=== PATIENT | female | born 1960 | race American Indian/Alaskan Native ===

== ENCOUNTER 2016-07-22 19:04 | Emergency (ER) | payer MEDICARE | END 2016-07-22 21:01 | disposition left against medical advice (07) | LOC: ED 19:04 | DX: M25.579 Pain in unspecified ankle and joints of unspecified foot (principal); Z53.21 Procedure and treatment not carried out due to patient leaving prior to being seen by health care provider; W18.30XA Fall on same level, unspecified, initial encounter; Y93.9 Activity, unspecified; Y92.9 Unspecified place or not applicable; Y99.9 Unspecified external cause status ==

== ENCOUNTER 2017-09-14 18:52 | Emergency (ER) | payer MEDICARE ==
[2017-09-14 19:56] LABS: Hematocrit 42.9 % (30.3-42.9); Hemoglobin 13.8 gm/dl (10.1-14.3); Mean Corpuscular HGB Conc 32 % (30-34); Mean Corpuscular Hemoglobin 28 pg (28-32); Mean Corpuscular Volume 86 fl (79-97); Platelet Count 330 K/mm3 (140-440); Red Cell Distribution Width 14.2 % (13.2-15.2)
[2017-09-14] MEDS ORDERED: PROVENTIL IH ONE (20:04)
[2017-09-14] MEDS ORDERED: TYLENOL PO ONE (20:04)
[2017-09-14 20:09] LABS: BUN/Creatinine Ratio 23; Blood Urea Nitrogen 18 mg/dL (7-17); Calcium 9.6 mg/dL (8.4-10.2); Hemolysis Index 12
[2017-09-14 20:25] LABS: Basophils % (Manual) 0 % (0.0-1.8); Eosinophils % (Manual) 0 % (0.0-4.3); Total Cells Counted 100
[2017-09-14 20:26] LABS: Anisocytosis 1+
--- NOTE | 2017-09-14 20:27 | Emergency Department Report ---
ED General Adult HPI - General Chief complaint: Dyspnea/Respdistress Stated complaint: COUGH, EH Time Seen by Provider: 09/14/17 19:49 Source: patient, RN notes reviewed Mode of arrival: Ambulatory Limitations: No Limitations - History of Present Illness Initial comments: Primary care Dr.: Dr. Pricila Valdez This is a 57-year-old female who was previously unknown to this provider. She presents to the ER with cough, abdominal discomfort with coughing, mucus production, and blood tinged sputum. She reports a few episodes of coughing over the past week, saw her primary care doctor for this, going 10 prescribed albuterol, steroids, Levaquin and a cough syrup. The patient has no DVT or pulmonary embolus risk factors, she is a former tobacco consumer, denies leg pain, leg swelling, hematemesis, bright red blood per rectum. Her symptoms are intermittent, and did not have exacerbating or relieving factors. -: Gradual Quality: aching Consistency: intermittent Improves with: none Worsens with: none Associated Symptoms: cough, fever/chills, other (see hpi). denies: confusion, chest pain, diaphoresis, headaches, loss of appetite, malaise, nausea/vomiting, rash, seizure, syncope - Related Data Home Medications Medication Instructions Recorded Confirmed Last Taken Atenolol 100 mg PO DAILY 06/17/13 11/22/15 11/18/13 08:00 ALBUTEROL NEB's [Proventil] 2.5 mg IH TID PRN 11/22/15 11/22/15 Unknown Fluticasone/Salmeterol [Advair 1 tab INHALATION DAILY 11/22/15 11/22/15 Unknown Diskus 500-50 mcg] Hydrochlorothiazide [HCTZ] 25 mg PO QDAY 11/22/15 11/22/15 Unknown Ipratropium [Atrovent] 0.5 mg IH Q4HWA 11/22/15 11/22/15 Unknown LORazepam [Ativan] 1 mg PO QHS 11/22/15 11/22/15 Unknown Nebulizer/Compressor 1 inh PO DAILY PRN 11/22/15 11/22/15 Unknown Omeprazole [PriLOSEC] 20 mg PO BID 11/22/15 11/22/15 Unknown Previous Rx's Medication Instructions Recorded Last Taken Type Albuterol Sulfate [Ventolin HFA] 2 puff IH Q4H PRN #1 hfa.aer.ad 12/17/13 Unknown Rx Lansoprazole [Prevacid] 15 mg PO BID #30 cap 11/22/15 Unknown Rx traMADol [Ultram] 50 mg PO Q6HR PRN #14 tablet 11/22/15 Unknown Rx Allergies Allergy/AdvReac Type Severity Reaction Status Date / Time aspirin AdvReac Vomiting Verified 06/17/13 09:11 ibuprofen AdvReac Vomiting Verified 06/17/13 09:11 ED Review of Systems ROS: Stated complaint: COUGH, EH Other details as noted in HPI Comment: All other systems reviewed and negative ED Past Medical Hx - Past Medical History Previous Medical History?: Yes Hx Hypertension: Yes (1989) Hx Arthritis: Yes (LEGS AND BACK) Hx Asthma: Yes (INHALER USED 6 MONTHS AGO) - Surgical History Past Surgical History?: Yes Additional Surgical History: Hysterectomy. hand surgery L) - Social History Smoking Status: Current Every Day Smoker Substance Use Type: None - Medications Home Medications: Home Medications Medication Instructions Recorded Confirmed Last Taken Type Atenolol 100 mg PO DAILY 06/17/13 11/22/15 11/18/13 08:00 History Albuterol Sulfate [Ventolin HFA] 2 puff IH Q4H PRN #1 hfa.aer.ad 12/17/13 Unknown Rx ALBUTEROL NEB's [Proventil] 2.5 mg IH TID PRN 11/22/15 11/22/15 Unknown History Fluticasone/Salmeterol [Advair 1 tab INHALATION DAILY 11/22/15 11/22/15 Unknown History Diskus 500-50 mcg] Hydrochlorothiazide [HCTZ] 25 mg PO QDAY 11/22/15 11/22/15 Unknown History Ipratropium [Atrovent] 0.5 mg IH Q4HWA 11/22/15 11/22/15 Unknown History LORazepam [Ativan] 1 mg PO QHS 11/22/15 11/22/15 Unknown History Lansoprazole [Prevacid] 15 mg PO BID #30 cap 11/22/15 Unknown Rx Nebulizer/Compressor 1 inh PO DAILY PRN 11/22/15 11/22/15 Unknown History Omeprazole [PriLOSEC] 20 mg PO BID 11/22/15 11/22/15 Unknown History traMADol [Ultram] 50 mg PO Q6HR PRN #14 tablet 11/22/15 Unknown Rx ED Physical Exam - General Limitations: No Limitations General appearance: alert, in no apparent distress - Head Head exam: Present: atraumatic, normocephalic - Eye Eye exam: Present: normal appearance, EOMI. Absent: nystagmus - ENT ENT exam: Present: normal exam, normal orophraynx, mucous membranes moist, normal external ear exam - Neck Neck exam: Present: normal inspection, full ROM - Respiratory Respiratory exam: Present: normal lung sounds bilaterally. Absent: respiratory distress - Cardiovascular Cardiovascular Exam: Present: regular rate, normal rhythm, normal heart sounds. Absent: systolic murmur, diastolic murmur, rubs, gallop - GI/Abdominal GI/Abdominal exam: Present: soft, normal bowel sounds. Absent: distended, tenderness, guarding, rebound, rigid, pulsatile mass - Extremities Exam Extremities exam: Present: normal inspection, full ROM, normal capillary refill. Absent: pedal edema, joint swelling, calf tenderness - Back Exam Back exam: Present: normal inspection, full ROM. Absent: tenderness, CVA tenderness (R), paraspinal tenderness - Neurological Exam Neurological exam: Present: alert, oriented X3, CN II-XII intact, normal gait, other (Extraocular movements intact. Tongue midline. No facial droop. Facial sensation intact to light touch in the V1, V2, V3 distribution bilaterally. 5 and 5 strength in 4 extremities.. Sensation is intact to light touch in 4 extremities.). Absent: motor sensory deficit - Psychiatric Psychiatric exam: Present: anxious - Skin Skin exam: Present: warm, dry, intact, normal color. Absent: rash ED Course Vital Signs 09/14/17 19:28 Temperature 98.6 F Pulse Rate 78 Respiratory 20 Rate Blood Pressure 131/53 O2 Sat by Pulse 97 Oximetry ED Medical Decision Making - Lab Data Result diagrams: 09/14/17 19:42 09/14/17 19:42 Vital Signs 09/14/17 19:28 Temperature 98.6 F Pulse Rate 78 Respiratory 20 Rate Blood Pressure 131/53 O2 Sat by Pulse 97 Oximetry Labs 09/14/17 09/14/17 19:42 19:42 WBC 12.3 H RBC 5.00 Hgb 13.8 Hct 42.9 MCV 86 MCH 28 MCHC 32 RDW 14.2 Plt Count 330 Sodium 138 Potassium 4.1 Chloride 95.9 L Carbon Dioxide 31 H Anion Gap 15 BUN 18 H Creatinine 0.8 Estimated GFR > 60 BUN/Creatinine Ratio 23 Glucose 125 H Calcium 9.6 - EKG Data -: EKG Interpreted by Me - EKG Data When compared to previous EKG there are: previous EKG unavailable 09/14/17 20:25 Normal sinus, 78 bpm, normal intervals, normal axis, left ventricular hypertrophy and not consistent with a stemi - Radiology Data Radiology results: image reviewed interpreted by me: X-ray the chest, interpreted by me: No acute disease - Medical Decision Making Differential diagnosis, including but not limited to: Bronchitis, bronchiectasis , pneumonia, sinusitis, pulmonary malignancy Assessment and plan: 57-year-old female with cough, intermittent hemoptysis, former tobacco user, unremarkable physical exam, laboratory studies are unremarkable, x-ray of the chest unremarkable, oriented taking albuterol, steroids, antibiotic therapy and cough suppressant. Patient reports she has follow-up next month with a shoe repairer apprentice. This is most likely an iteration of bronchitis. She is afebrile with reassuring vital signs, has no pulmonary embolus or DVT risk factors and is low risk by well's criteria. The patient may be managed expectantly at this time given the occurrence of information, she is encouraged to follow-up with her outpatient shoe repairer apprentice. Return precautions are reviewed. Critical care attestation.: If time is entered above; I have spent that time in minutes in the direct care of this critically ill patient, excluding procedure time. ED Disposition Clinical Impression: Bronchitis Disposition: [id number] TO HOME OR SELFCARE Is pt being admited?: No Does the pt Need Aspirin: No Condition: Good Instructions: Acute Bronchitis (ED) Additional Instructions: Continue medications that were prescribed by her primary care doctor. Follow- up with your primary care doctor within the next month. Follow up with the referred shoe repairer apprentice or any of the listed pulmonology specialists within the next month. Symptoms of bronchitis typically lasts 4-6 weeks. Return to the ER right away with new pain, worsened pain, migration of pain, fevers, chills, confusion, intractable nausea or vomiting, inability to tolerate liquid feeds, vomiting blood, defecating blood. Referrals: SARAH VALDEZ MD [Primary Care Provider] - 3-5 Days BRITTANI CAPPS MD [Staff Physician] - 3-5 Days PAUL LUEVANO MD [Staff Physician] - 3-5 Days JOSEFINA LAW MD [Staff Physician] - 3-5 Days BETITO COTA MD [Staff Physician] - 3-5 Days
[2017-09-14 20:40] VITALS: BP 130/75
--- NOTE | 2017-09-14 21:16 | XRay Report ---
FINAL REPORT EXAM: XR CHEST ROUTINE 2V HISTORY: Shortness of breath TECHNIQUE: PA and lateral views of the chest PRIORS: None. FINDINGS: Lines, tubes, and devices: N/A Lungs and pleura: Trachea is normal in position. Lungs are clear of infiltrate, pleural effusion, vascular congestion, or pneumothorax. Cardiomediastinal silhouette: Cardiac and mediastinal silhouettes are unremarkable. Other: Bony structures demonstrate a plate and screw device in the lower cervical spine. IMPRESSION: No acute cardiopulmonary process seen.
== END 2017-09-14 21:31 | disposition home or self-care (01) ==
LOC: ED 18:52
DX: J40 Bronchitis, not specified as acute or chronic (principal); F17.200 Nicotine dependence, unspecified, uncomplicated; I10 Essential (primary) hypertension; M19.90 Unspecified osteoarthritis, unspecified site; Z88.6 Allergy status to analgesic agent; Z90.710 Acquired absence of both cervix and uterus
CPT/HCPCS: 36415; 71046; 80048; 85007; 85025; 93005; 93010; 94640

== ENCOUNTER 2017-10-05 17:43 | Observation (INO) | payer MEDICARE ==
[2017-10-05 19:08] LABS: Basophils # (Auto) 0.1 K/mm3 (0.0-0.1); Basophils % (Auto) 0.6 % (0.0-1.8); Eosinophils # (Auto) 0.5 K/mm3 (0.0-0.4); Eosinophils % (Auto) 5.3 % (0.0-4.3); Hemoglobin 13.5 gm/dl (10.1-14.3); Lymphocytes # (Auto) 3.1 K/mm3 (1.2-5.4); Lymphocytes % (Auto) 34.7 % (13.4-35.0); Mean Corpuscular HGB Conc 33 % (30-34); Mean Corpuscular Hemoglobin 28 pg (28-32); Mean Corpuscular Volume 87 fl (79-97); Monocytes # (Auto) 1.1 K/mm3 (0.0-0.8); Monocytes % (Auto) 11.7 % (0.0-7.3); Platelet Count 300 K/mm3 (140-440); Red Blood Count 4.74 M/mm3 (3.65-5.03); Red Cell Distribution Width 13.8 % (13.2-15.2)
[2017-10-05 19:28] LABS: BUN/Creatinine Ratio 13; Blood Urea Nitrogen 9 mg/dL (7-17); Calcium 9.4 mg/dL (8.4-10.2); Hemolysis Index 12
[2017-10-05] MEDS ORDERED: ATIVAN IV ONE (22:15)
--- NOTE | 2017-10-05 22:15 | Emergency Department Report ---
ED Dizziness HPI - General Chief Complaint: Dizziness Stated Complaint: DIZZINESS/LEG WEAKNESS Time Seen by Provider: 10/05/17 21:45 Source: patient Mode of arrival: Ambulatory Limitations: No Limitations - History of Present Illness Initial Comments: 57-year-old female who states dizzy spell with near syncope, she's been having off and on for 2 wks more weeks. She has a history of mitral valve problems she is on a beta elmo for this. She does state she gets an occasional tachycardia that she has had. This was on the beta elmo. She denies drug or alcohol use she does smoke. History includes COPD she is here for evaluation of intermittent dizzy spells make her feel like she migjs wills out. She's not sure if it's positional although she thinks she might be having some positional spinning. Her PCP recently started her on meclizine she states it is not really helping she denies any black or bloody stool no chest pain no tearing pain. no calf pain or swelling, no bladder or bowel problems, occ n/v w sx, no orthostatic art triage MD Complaint: dizziness, lightheadedness, near syncope -: days(s), unknown Description: lightheadedness Improves With: nothing Worsens With: nothing Associated Symptoms: denies: ataxia, chest pain, confusion, cough, diaphoresis, fever/chills, loss of appetite, malaise, rash, seizure, shortness of breath, weakness - Related Data Home Medications Medication Instructions Recorded Confirmed Last Taken Atenolol 100 mg PO DAILY 06/17/13 09/14/17 11/18/13 08:00 ALBUTEROL NEB's [Proventil] 2.5 mg IH TID PRN 11/22/15 09/14/17 Unknown Fluticasone/Salmeterol [Advair 1 tab INHALATION DAILY 11/22/15 09/14/17 Unknown Diskus 500-50 mcg] Hydrochlorothiazide [HCTZ] 25 mg PO QDAY 11/22/15 09/14/17 Unknown Ipratropium [Atrovent] 0.5 mg IH Q4HWA 11/22/15 09/14/17 Unknown LORazepam [Ativan] 1 mg PO QHS 11/22/15 09/14/17 Unknown Nebulizer/Compressor 1 inh PO DAILY PRN 11/22/15 09/14/17 Unknown Omeprazole [PriLOSEC] 20 mg PO BID 11/22/15 09/14/17 Unknown Previous Rx's Medication Instructions Recorded Last Taken Type Albuterol Sulfate [Ventolin HFA] 2 puff IH Q4H PRN #1 hfa.aer.ad 12/17/13 Unknown Rx Lansoprazole [Prevacid] 15 mg PO BID #30 cap 11/22/15 Unknown Rx traMADol [Ultram] 50 mg PO Q6HR PRN #14 tablet 11/22/15 Unknown Rx Allergies Allergy/AdvReac Type Severity Reaction Status Date / Time aspirin AdvReac Vomiting Verified 06/17/13 09:11 ED Review of Systems ROS: Stated complaint: DIZZINESS/LEG WEAKNESS Other details as noted in HPI Comment: All other systems reviewed and negative Constitutional: denies: diaphoresis, fever, malaise ENT: denies: dental pain, hearing loss Respiratory: denies: shortness of breath, SOB with exertion, SOB at rest, stridor Cardiovascular: denies: chest pain, palpitations, dyspnea on exertion, orthopnea , edema, paroxysmal nocturnal dyspnea Gastrointestinal: denies: abdominal pain, nausea, vomiting, diarrhea, constipation, hematemesis, melena, hematochezia Neurological: denies: headache, weakness, numbness, paresthesias, confusion, abnormal gait ED Past Medical Hx - Past Medical History Hx Hypertension: Yes (1989) Hx Arthritis: Yes (LEGS AND BACK) Hx Asthma: Yes (INHALER USED 6 MONTHS AGO) - Surgical History Additional Surgical History: Hysterectomy. hand surgery L) - Social History Smoking Status: Current Every Day Smoker Substance Use Type: None - Medications Home Medications: Home Medications Medication Instructions Recorded Confirmed Last Taken Type Atenolol 100 mg PO DAILY 06/17/13 09/14/17 11/18/13 08:00 History Albuterol Sulfate [Ventolin HFA] 2 puff IH Q4H PRN #1 hfa.aer.ad 12/17/13 Unknown Rx ALBUTEROL NEB's [Proventil] 2.5 mg IH TID PRN 11/22/15 09/14/17 Unknown History Fluticasone/Salmeterol [Advair 1 tab INHALATION DAILY 11/22/15 09/14/17 Unknown History Diskus 500-50 mcg] Hydrochlorothiazide [HCTZ] 25 mg PO QDAY 11/22/15 09/14/17 Unknown History Ipratropium [Atrovent] 0.5 mg IH Q4HWA 11/22/15 09/14/17 Unknown History LORazepam [Ativan] 1 mg PO QHS 11/22/15 09/14/17 Unknown History Lansoprazole [Prevacid] 15 mg PO BID #30 cap 11/22/15 09/14/17 Unknown Rx Nebulizer/Compressor 1 inh PO DAILY PRN 11/22/15 09/14/17 Unknown History Omeprazole [PriLOSEC] 20 mg PO BID 11/22/15 09/14/17 Unknown History traMADol [Ultram] 50 mg PO Q6HR PRN #14 tablet 11/22/15 09/14/17 Unknown Rx ED Physical Exam - General Limitations: No Limitations General appearance: alert, in no apparent distress - Head Head exam: Present: atraumatic, normocephalic - Eye Eye exam: Present: PERRL, EOMI, nystagmus (hortizontal) - ENT ENT exam: Present: normal exam, normal orophraynx - Neck Neck exam: Present: normal inspection. Absent: tenderness, meningismus - Respiratory Respiratory exam: Present: normal lung sounds bilaterally. Absent: respiratory distress, wheezes, rales, rhonchi, stridor - Cardiovascular Cardiovascular Exam: Present: regular rate, normal rhythm, normal heart sounds - GI/Abdominal GI/Abdominal exam: Present: soft. Absent: tenderness, guarding, rebound, rigid , mass, pulsatile mass - Extremities Exam Extremities exam: Present: normal capillary refill. Absent: calf tenderness - Back Exam Back exam: Present: normal inspection. Absent: CVA tenderness (L) - Neurological Exam Neurological exam: Present: alert, oriented X3, CN II-XII intact. Absent: motor sensory deficit ED Course Vital Signs 10/05/17 10/05/17 10/05/17 18:13 21:20 21:30 Temperature 98.7 F Pulse Rate 80 79 70 Respiratory 18 19 21 Rate Blood Pressure 113/60 123/61 O2 Sat by Pulse 97 Oximetry 10/05/17 10/05/17 10/05/17 21:31 21:45 22:00 Temperature Pulse Rate 82 Respiratory 18 22 13 Rate Blood Pressure 121/76 121/82 O2 Sat by Pulse 98 94 95 Oximetry 10/05/17 10/05/17 10/06/17 22:15 22:30 01:57 Temperature Pulse Rate Respiratory 18 14 Rate Blood Pressure 121/82 114/79 105/38 O2 Sat by Pulse 95 Oximetry ED Medical Decision Making - Lab Data Result diagrams: 10/05/17 18:32 10/05/17 18:32 - EKG Data -: EKG Interpreted by Me EKG shows normal: sinus rhythm - EKG Data Interpretation: no acute changes - Radiology Data Radiology results: report reviewed - Medical Decision Making Patient with intermittent dizzy spell. She says she was getting near syncopal I did discuss case with hospitalist for admit given the fact she does have some type history of tachycardia according the patient. She is on beta blockers. She will be admitted for further evaluation of near syncope with dizzy spells. Head CT was negative neuro exam is nonfocal EKG showed normal sinus rhythm Her studies are essentially unremarkable but given the history she will need further evaluation for possible cardiogenic syncope and dizziness Critical care attestation.: If time is entered above; I have spent that time in minutes in the direct care of this critically ill patient, excluding procedure time. ED Disposition Clinical Impression: Dizziness, Syncope Disposition: -09 OP ADMIT IP TO THIS HOSP Is pt being admited?: Yes Condition: Stable Instructions: Syncope (ED) Referrals: FAVIAN GARCIA MD [Primary Care Provider] - 3-5 Days Time of Disposition: 02:35
--- NOTE | 2017-10-05 22:51 | Cat Scan Report ---
FINAL REPORT EXAM: CT HEAD/BRAIN WO CON HISTORY: Lightheadedness/Dizziness TECHNIQUE: CT head without contrast PRIORS: None. FINDINGS: No acute intra-axial or extra-axial hemorrhage is identified. There is no evidence of midline shift or mass effect. The ventricles and sulci are within normal limits. Bolden-white matter differentiation is intact. No acute parenchymal abnormalities seen. Bony calvarium is grossly intact. Visualized portions of the mastoids and paranasal sinuses are unremarkable. IMPRESSION: Negative CT head
--- NOTE | 2017-10-06 00:09 | XRay Report ---
FINAL REPORT PROCEDURE: XR CHEST ROUTINE 2V TECHNIQUE: PA and lateral chest radiographs were obtained. CPT 49627 HISTORY: Lightheadedness/Dizziness COMPARISON: Prior chest x-ray 09/14/2017 FINDINGS: Heart: Normal. Mediastinum/Vessels: Normal. Lungs/Pleural space: Normal. Bony thorax: No acute osseous abnormality. Postsurgical changes seen lower cervical spine from prior fusion procedure. This is visualized on the prior study. Other: IMPRESSION: No acute abnormalities are identified..
[2017-10-06 01:12] LABS: Bilirubin,Urine NEG (Negative); Blood,Urine MOD (Negative); Color,Urine Yellow (Yellow); Mucus,Urine 3+ /HPF; Protein,Urine <15 mg/dL mg/dL (Negative); Urobilinogen,Urine < 2.0 mg/dL (<2.0)
[2017-10-06 01:17] LABS: Amphetamine Screen,Urine PRESUMPTIVE NEGATIVE; Benzodiazepines Screen,Urine PRESUMPTIVE NEGATIVE; Cannabinoid Screen,Urine PRESUMPTIVE NEGATIVE; Cocaine Screen,Urine PRESUMPTIVE NEGATIVE; Methadone Screen,Urine PRESUMPTIVE NEGATIVE; Opiate Screen,Urine PRESUMPTIVE NEGATIVE
[2017-10-06] MEDS ORDERED: ZOFRAN IV PRN (02:41)
[2017-10-06] MEDS ORDERED: TYLENOL PO PRN (02:43)
[2017-10-06] MEDS ORDERED: NACL 0.9% 1000 ML 1,000 ML IV SCH (03:00)
[2017-10-06] MEDS ORDERED: PROAIR IH PRN (03:08)
[2017-10-06] MEDS ORDERED: PROVENTIL IH PRN ×2 (03:08→03:21)
[2017-10-06 03:10] VITALS: BP 122/62
[2017-10-06] MEDS ORDERED: BROVANA NEBU IH SCH (08:00)
[2017-10-06] MEDS ORDERED: PULMICORT IH SCH (08:00)
[2017-10-06] MEDS ORDERED: TENORMIN PO SCH (10:00)
[2017-10-06] MEDS ORDERED: ATENOLOL 100 MG PO SCH (10:00)
[2017-10-06] MEDS ORDERED: ANTIVERT PO SCH (10:00)
[2017-10-06] MEDS ORDERED: SALMETEROL INHALATION SCH (10:00)
[2017-10-06] MEDS ORDERED: PROTONIX PO SCH (10:00)
[2017-10-06] MEDS ORDERED: FLUTICASONE INHALATION SCH (10:00)
[2017-10-06] MEDS ORDERED: ACIDOPH PARACASEI B LACTIS PO SCH (10:00)
[2017-10-06] MEDS ORDERED: NON-FORMULARY (Omeprazole [Prilosec] 40 MG) PO SCH (10:00)
[2017-10-06] MEDS ORDERED: CULTURELLE PO SCH (10:00)
[2017-10-06] MEDS ORDERED: HCTZ PO SCH (10:00)
--- NOTE | 2017-10-07 10:12 | History and Physical Report ---
CHIEF COMPLAINT: Dizziness. HISTORY OF PRESENT ILLNESS: The patient is a 57-year-old female, who said she has been having dizzy spells going on for about 2 weeks. The patient said the dizziness happens whenever she sits up and she feels dizzy and feel like she was going to pass out with some weakness in her lower limb and nausea, but no vomiting. The patient, however, admitted to having on and off symptoms of earache and stuffiness in the ear, but denied history of vertigo, denied history of chest pain, and she also deny history of shortness of breath, fever, chills, or cough. The patient stated that she was placed on meclizine by the primary care doctor, but did not have much relief on meclizine and said that the symptoms of dizziness is often associated with occasional rapid heartbeat. The patient denies history of illicit drug use and alcohol ingestion prior to dizzy spells. The patient also gets history of having had flu attack with prescription of antibiotics that preceded the onset of dizzy spells. She said it was shortly after she completed the antibiotics and the dizzy spells started. PAST MEDICAL HISTORY: Pertinent for hypertension, arthritis, asthma, mitral valve prolapse. PAST SURGICAL HISTORY: Pertinent for hysterectomy, left hand surgery. FAMILY HISTORY: Noncontributory. SOCIAL HISTORY: The patient smokes cigarettes, does not drink alcohol, and does not use illicit drugs. MEDICATIONS: The patient is on atenolol 100 mg daily, Ventolin inhaler 2 puffs every 4 hours as needed for shortness of breath, Advair Diskus 500/50 mcg 1 inhalation daily, hydrochlorothiazide 25 mg daily, ipratropium, Atrovent inhaler 0.5 mg q.4 hours. The patient is also on Ativan 1 mg by mouth at night time and Prevacid 50 mg by mouth twice daily. Also the patient is on tramadol 50 mg by mouth every 6 hours as needed for pain. ALLERGIES: THE PATIENT IS ALLERGIC TO ASPIRIN. REVIEW OF SYSTEMS: CONSTITUTIONAL: There is no fever, no chills, no diaphoresis. HEENT: There is no headache or sore throat. CARDIOVASCULAR SYSTEM: There is no chest pain, orthopnea, rapid heartbeat. RESPIRATORY SYSTEM: There is no shortness of breath or cough. GASTROINTESTINAL SYSTEM: There is nausea, but no vomiting, no abdominal pain, diarrhea, or constipation. NEUROLOGICAL SYSTEM: Dizziness present, near syncopal feeling present. There is no change in mental status. MUSCULOSKELETAL SYSTEM: There is no joint pain or swelling. DERMATOLOGICAL SYSTEM: There is no skin rash or itching. GENITOURINARY SYSTEM: There is no dysuria, hematuria, or flank pain. Rest of system review is normal. PHYSICAL EXAMINATION: GENERAL: At the time of exam, the patient was found to be alert, oriented x 3, not in acute distress. VITAL SIGNS: Shows temperature of 98.7 degrees Fahrenheit, pulse of 80, respiration 18, blood pressure 113/60, O2 sat of 97% on room air. HEENT: Showed pupils to be equal, round, and reactive to light and accommodation. Extraocular muscles are intact. NECK: Supple with no JVD or carotid bruit. CARDIOVASCULAR SYSTEM: Showed normal first and second heart sounds with no gallops or murmurs. RESPIRATORY SYSTEM: Show good air entry on both sides of the lungs with no abnormal breath sounds. GASTROINTESTINAL SYSTEM: Show abdomen to be soft, full, nontender with no organomegaly or rigidity. NEUROLOGICAL SYSTEM: Shows no focal deficit. MUSCULOSKELETAL SYSTEM: Show no joint swelling or tenderness. DERMATOLOGICAL SYSTEM: Show no skin rash. GENITOURINARY SYSTEM: Show no costovertebral angle tenderness. PERTINENT LABORATORY AND IMAGING STUDIES: The patient had CT of the head without contrast done that shows no acute lesion. Also, the patient had chest x-ray done that shows no acute cardiopulmonary lesion. The patient's lab results show CBC with normal white count, normal hemoglobin, and normal hematocrit with CBC differential showing elevated monocyte count of 11.7% and elevated eosinophil count of 5.3%, normal segmented neutrophil was noted. The patient's chemistry was normal except for slight increase in CO2 of 31. The patient's troponin level came back unremarkable. Urinalysis shows elevated urine wbc's of 12 with elevated urine epithelial cells of 34, and trace urine leukocyte esterase. Urine drug screen came back negative. DIAGNOSES: Dizziness, near syncopal attack. PLAN: The patient will be admitted to medical floor on telemetry. We will have cardiac enzymes involving troponin and total CK checked every 6 hours x 2 more level. The patient will have bilateral carotid Doppler done in the morning and also will have complete 2D echo done in the morning. The patient will be on normal saline at 125 mL an hour. The patient will be on IV normal saline at 125 mL an hour and will be on IV Zofran at dose of 4 mg every 6 hours as needed for nausea and vomiting. The patient will also be on Tylenol 650 mg by mouth every 4 hours for fever and headache and will be on meclizine Antivert 25 mg by mouth twice daily. The patient will be on oxygen by nasal cannula at 2 liters per minute and will be on home medication as shown in the medication reconciliation section. JOB# [id number] OCN/NTS MTDD
== END 2017-10-06 06:15 | disposition left against medical advice (07) ==
LOC: ED 17:43 → INTOOBSV 10-06 02:34 → 4A 10-06 02:34
PROVIDERS: ADMIT Internal Medicine; ATTEND Internal Medicine
DX: R55 Syncope and collapse (principal); I10 Essential (primary) hypertension; J45.909 Unspecified asthma, uncomplicated; M19.90 Unspecified osteoarthritis, unspecified site; F17.210 Nicotine dependence, cigarettes, uncomplicated; Z90.710 Acquired absence of both cervix and uterus; Z79.899 Other long term (current) drug therapy
CPT/HCPCS: 36415; 70450; 71046; 80048; 80307; 81001; 82550; 82553; 84484; 85025; 93005; 93010; 96360; 96361; 99285; G0378; J7030; J2060

== ENCOUNTER 2020-06-26 23:28 | Emergency (ER) | payer MEDICARE ==
[2020-06-26 23:44] VITALS: BP 176/83
[2020-06-27] MEDS ORDERED: HYDROcodone/ACETAMINOPHEN 5-325 MG TAB PO ONE ×2 (02:45→05:23)
--- NOTE | 2020-06-27 03:14 | Emergency Department Report ---
ED General Adult HPI - General Chief complaint: Sore Throat Stated complaint: SORE THROAT Time Seen by Provider: 06/27/20 02:44 Source: patient Mode of arrival: Ambulatory Limitations: No Limitations - History of Present Illness Initial comments: pt is a 60 y/o aaf with hx of asthma and bronchitis who presents for sore throat x 1 week, pt denies sob, no wheezing, no stridor , pos for malaise and pain with swallowing. symptoms are relieved by hot liquids, symptoms are exacerbated by swallowing. Onset/Timin -: week(s) - Related Data Home Medications Medication Instructions Recorded Confirmed Last Taken Atenolol 100 mg PO DAILY 06/17/13 10/06/17 11/18/13 08:00 ALBUTEROL NEB's [Proventil] 2.5 mg IH TID PRN 11/22/15 10/06/17 Unknown Fluticasone/Salmeterol [Advair 1 tab INHALATION DAILY 11/22/15 10/06/17 Unknown Diskus 500-50 mcg] Omeprazole [PriLOSEC] 40 mg PO DAILY 11/22/15 10/06/17 Unknown hydroCHLOROthiazide [HCTZ] 25 mg PO QDAY 11/22/15 10/06/17 Unknown L.acidoph,Paracasei, B.lactis 1 each PO DAILY 10/06/17 10/06/17 Unknown [Probiotic] Meclizine [Antivert] 25 mg PO TID PRN 10/06/17 10/06/17 Unknown Previous Rx's Medication Instructions Recorded Last Taken Type Albuterol Sulfate [Ventolin HFA] 2 puff IH Q4H PRN #1 hfa.aer.ad 12/17/13 Unknown Rx Acetaminophen [Acetaminophen TAB] 500 mg PO Q6HR PRN #30 tablet 06/27/20 Unknown Rx dexAMETHasone [Decadron] 4 mg PO Q12H #4 tablet 06/27/20 Unknown Rx Allergies Allergy/AdvReac Type Severity Reaction Status Date / Time aspirin AdvReac Vomiting Verified 06/17/13 09:11 ED Review of Systems ROS: Stated complaint: SORE THROAT Other details as noted in HPI Constitutional: malaise. denies: chills, fever Eyes: denies: eye pain, eye discharge, vision change ENT: throat pain. denies: ear pain, congestion Respiratory: denies: cough, shortness of breath, wheezing Cardiovascular: denies: chest pain, palpitations Endocrine: no symptoms reported Gastrointestinal: denies: abdominal pain, nausea, vomiting, diarrhea Genitourinary: denies: urgency, dysuria, discharge Musculoskeletal: denies: back pain, joint swelling, arthralgia Skin: denies: rash, lesions Neurological: denies: headache, weakness, paresthesias Psychiatric: denies: anxiety, depression Hematological/Lymphatic: denies: easy bleeding, easy bruising ED Past Medical Hx - Past Medical History Hx Hypertension: Yes (1989) Hx Congestive Heart Failure: No Hx Diabetes: No Hx GERD: Yes Hx Arthritis: Yes (LEGS AND BACK) Hx Asthma: Yes (bronchitis) Hx COPD: Yes Additional medical history: MVP - Surgical History Past Surgical History?: No Additional Surgical History: Hysterectomy. hand surgery L). right leg - Social History Smoking Status: Never Smoker Substance Use Type: None - Medications Home Medications: Home Medications Medication Instructions Recorded Confirmed Last Taken Type Atenolol 100 mg PO DAILY 06/17/13 10/06/17 11/18/13 08:00 History Albuterol Sulfate [Ventolin HFA] 2 puff IH Q4H PRN #1 hfa.aer.ad 12/17/13 10/06/17 Unknown Rx ALBUTEROL NEB's [Proventil] 2.5 mg IH TID PRN 11/22/15 10/06/17 Unknown History Fluticasone/Salmeterol [Advair 1 tab INHALATION DAILY 11/22/15 10/06/17 Unknown History Diskus 500-50 mcg] Omeprazole [PriLOSEC] 40 mg PO DAILY 11/22/15 10/06/17 Unknown History hydroCHLOROthiazide [HCTZ] 25 mg PO QDAY 11/22/15 10/06/17 Unknown History L.acidoph,Paracasei, B.lactis 1 each PO DAILY 10/06/17 10/06/17 Unknown History [Probiotic] Meclizine [Antivert] 25 mg PO TID PRN 10/06/17 10/06/17 Unknown History Acetaminophen [Acetaminophen TAB] 500 mg PO Q6HR PRN #30 tablet 06/27/20 Unknow n Rx dexAMETHasone [Decadron] 4 mg PO Q12H #4 tablet 06/27/20 Unknown Rx ED Physical Exam - General Limitations: No Limitations General appearance: alert, in no apparent distress - Head Head exam: Present: atraumatic, normocephalic - Eye Eye exam: Present: normal appearance, PERRL, EOMI Pupils: Present: normal accommodation - ENT ENT exam: Present: mucous membranes moist, TM's normal bilaterally, normal external ear exam - Expanded ENT Exam Expanded Throat exam: Positive: normal inspection, tonsillar erythema. Negative: tonsillomegaly, tonsillar exudate, R peritonsillar mass, L peritonsillar mass - Neck Neck exam: Present: normal inspection, tenderness, full ROM, lymphadenopathy. Absent: meningismus (along anterior aurical change ), thyromegaly - Respiratory Respiratory exam: Present: normal lung sounds bilaterally, rhonchi. Absent: wheezes, stridor, chest wall tenderness - Cardiovascular Cardiovascular Exam: Present: regular rate, normal rhythm, normal heart sounds. Absent: systolic murmur, diastolic murmur, rubs, gallop - GI/Abdominal GI/Abdominal exam: Present: soft, normal bowel sounds. Absent: distended, tenderness, guarding, rebound, rigid, bruit, hernia - Rectal Rectal exam: Present: deferred - Extremities Exam Extremities exam: Present: normal inspection, full ROM, normal capillary refill - Back Exam Back exam: Present: normal inspection, full ROM, tenderness. Absent: CVA tenderness (R), CVA tenderness (L) - Neurological Exam Neurological exam: Present: alert, oriented X3, CN II-XII intact, normal gait - Psychiatric Psychiatric exam: Present: normal affect, normal mood - Skin Skin exam: Present: warm, dry, intact, normal color. Absent: rash ED Course Vital Signs 06/26/20 23:34 Temperature 98.0 F Pulse Rate 70 Respiratory 18 Rate Blood Pressure 176/83 O2 Sat by Pulse 100 Oximetry ED Medical Decision Making - Radiology Data Radiology results: report reviewed - Medical Decision Making Rapid strep test is negative there is no fevers no chills. Patient is tolerating p.o. intake without nausea vomiting. Plan will DC to home. Patient will follow up with PCP in 2 to 3 days. Patient will return to emergency should symptoms worsen. Patient verbalized agreement and understanding with discharge plan. Patient DC'd home in stable condition at this time. Critical care attestation.: If time is entered above; I have spent that time in minutes in the direct care of this critically ill patient, excluding procedure time. ED Disposition Clinical Impression: Pharyngitis Qualifiers: Pharyngitis/tonsillitis etiology: other specified organisms Qualified Code(s): J02.8 - Acute pharyngitis due to other specified organisms Disposition: DC-01 TO HOME OR SELFCARE Is pt being admited?: No Does the pt Need Aspirin: No Condition: Stable Instructions: Sore Throat, [id number] Additional Instructions: pharyngitis, follow up with pcp in 2-3 asyy as 123, pt will dc to home wt rx, pt verbalized agreement and understanding of kadie, pt dc'd in stab le condiion Prescriptions: Acetaminophen [Acetaminophen TAB] 500 mg PO Q6HR PRN #30 tablet PRN Reason: pain dexAMETHasone [Decadron] 4 mg PO Q12H #4 tablet Referrals: ELIZABETH TRINIDAD MD [Staff Physician] - 3-5 Days Forms: Work/School Release Form(ED)
== END 2020-06-27 05:26 | disposition home or self-care (01) ==
LOC: ED 23:28
DX: J02.9 Acute pharyngitis, unspecified (principal); M19.90 Unspecified osteoarthritis, unspecified site; I10 Essential (primary) hypertension; K21.9 Gastro-esophageal reflux disease without esophagitis; J44.9 Chronic obstructive pulmonary disease, unspecified; Z90.710 Acquired absence of both cervix and uterus; Z88.8 Allergy status to other drugs, medicaments and biological substances; Z79.899 Other long term (current) drug therapy; Z98.890 Other specified postprocedural states
CPT/HCPCS: 87116; 87430

== ENCOUNTER 2022-01-28 17:09 | Emergency (ER) | payer MEDICARE ==
[2022-01-28 18:41] VITALS: BP 162/68
--- NOTE | 2022-01-29 11:13 | Electrocardiograph Report ---
[facility] Test Date: 2022-01-28 Test Time: 18:51:40 Pat Name: EVE MAYERS Department: Room: Gender: F Service Person: MELANIE : 1960 Requested By: WU ARVIZU Order Number: [id number] Reading MD: Hans Patel Measurements Intervals [place] Rate: 62 P: 48 PA: 155 QRS: 14 QRSD: 84 T: 36 QT: 431 QTc: 439 Interpretive Statements Sinus rhythm Left ventricular hypertrophy No previous ECG available for comparison Electronically Signed On 01-29-2022 11:13:11 EDT by Hans Patel
== END 2022-01-29 14:06 | disposition left against medical advice (07) ==
LOC: ED 17:09
DX: R42 Dizziness and giddiness (principal); Z53.21 Procedure and treatment not carried out due to patient leaving prior to being seen by health care provider
CPT/HCPCS: 93005

== ENCOUNTER 2022-01-30 15:53 | Emergency (ER) | payer MEDICARE ==
--- NOTE | 2022-01-31 08:02 | Emergency Department Report ---
ED General Adult HPI - General Chief complaint: Headache Stated complaint: BLOOD PRESSURE Source: patient Mode of arrival: Ambulatory Limitations: No Limitations - History of Present Illness Initial comments: 62-year-old female presents to the ED complaining hypertension. Patient states that she is currently being followed by her primary care doctor in which they are constantly changing her medication./States she is currently taking atenolol 100 mg twice a day and losartan potassium 25 mg daily she started 3 weeks ago. She states that she noticed that her blood pressure has been running high and her next appointment with her with her primary care doctor is within 4 days. Patient states that the medication often make her feel dizzy. Patient is alert and oriented x3. No acute distress noted .No ill appearance noted Onset/Timin Consistency: intermittent Improves with: none Worsens with: none Associated Symptoms: denies other symptoms Treatments Prior to Arrival: none - Related Data Home Medications Medication Instructions Recorded Confirmed Last Taken Atenolol 100 mg PO DAILY 06/17/13 10/06/17 11/18/13 08:00 ALBUTEROL NEB's [Proventil] 2.5 mg IH TID PRN 11/22/15 10/06/17 Unknown Fluticasone/Salmeterol [Advair 1 tab INHALATION DAILY 11/22/15 10/06/17 Unknown Diskus 500-50 mcg] Omeprazole [PriLOSEC] 40 mg PO DAILY 11/22/15 10/06/17 Unknown hydroCHLOROthiazide [HCTZ] 25 mg PO QDAY 11/22/15 10/06/17 Unknown L.acidoph,Paracasei, B.lactis 1 each PO DAILY 10/06/17 10/06/17 Unknown [Probiotic] Meclizine [Antivert] 25 mg PO TID PRN 10/06/17 10/06/17 Unknown Previous Rx's Medication Instructions Recorded Last Taken Type Albuterol Sulfate [Ventolin HFA] 2 puff IH Q4H PRN #1 hfa.aer.ad 12/17/13 Unknown Rx Acetaminophen [Acetaminophen TAB] 500 mg PO Q6HR PRN #30 tablet 06/27/20 Unknown Rx dexAMETHasone [Decadron] 4 mg PO Q12H #4 tablet 06/27/20 Unknown Rx traMADoL [Ultram] 50 mg PO Q6HR PRN #12 tablet 06/27/20 Unknown Rx Allergies Allergy/AdvReac Type Severity Reaction Status Date / Time aspirin AdvReac Vomiting Verified 06/17/13 09:11 ED Review of Systems ROS: Stated complaint: BLOOD PRESSURE Other details as noted in HPI Constitutional: denies: chills, fever Eyes: denies: eye pain, eye discharge, vision change ENT: denies: ear pain, throat pain Respiratory: denies: cough, shortness of breath, wheezing Cardiovascular: denies: chest pain, palpitations Endocrine: no symptoms reported Gastrointestinal: denies: abdominal pain, nausea, diarrhea Genitourinary: denies: urgency, dysuria, discharge Musculoskeletal: denies: back pain, joint swelling, arthralgia Skin: denies: rash, lesions Neurological: denies: headache, weakness, paresthesias Psychiatric: denies: anxiety, depression Hematological/Lymphatic: denies: easy bleeding, easy bruising ED Past Medical Hx - Past Medical History Hx Hypertension: Yes (1989) Hx Congestive Heart Failure: No Hx Diabetes: No Hx GERD: Yes Hx Arthritis: Yes (LEGS AND BACK) Hx Asthma: (bronchitis) Hx COPD: Yes Additional medical history: MVP, thyroid disease - Surgical History Additional Surgical History: Hysterectomy. hand surgery L). right leg - Social History Smoking Status: Never Smoker Substance Use Type: None - Medications Home Medications: Home Medications Medication Instructions Recorded Confirmed Last Taken Type Atenolol 100 mg PO DAILY 06/17/13 10/06/17 11/18/13 08:00 History Albuterol Sulfate [Ventolin HFA] 2 puff IH Q4H PRN #1 hfa.aer.ad 12/17/13 10/06/17 Unknown Rx ALBUTEROL NEB's [Proventil] 2.5 mg IH TID PRN 11/22/15 10/06/17 Unknown History Fluticasone/Salmeterol [Advair 1 tab INHALATION DAILY 11/22/15 10/06/17 Unknown History Diskus 500-50 mcg] Omeprazole [PriLOSEC] 40 mg PO DAILY 11/22/15 10/06/17 Unknown History hydroCHLOROthiazide [HCTZ] 25 mg PO QDAY 11/22/15 10/06/17 Unknown History L.acidoph,Paracasei, B.lactis 1 each PO DAILY 10/06/17 10/06/17 Unknown History [Probiotic] Meclizine [Antivert] 25 mg PO TID PRN 10/06/17 10/06/17 Unknown History Acetaminophen [Acetaminophen TAB] 500 mg PO Q6HR PRN #30 tablet 06/27/20 Unknown Rx dexAMETHasone [Decadron] 4 mg PO Q12H #4 tablet 06/27/20 Unknown Rx traMADoL [Ultram] 50 mg PO Q6HR PRN #12 tablet 06/27/20 Unknown Rx ED Physical Exam - General Limitations: No Limitations General appearance: alert, in no apparent distress - Head Head exam: Present: atraumatic, normocephalic - Eye Eye exam: Present: normal appearance - ENT ENT exam: Present: mucous membranes moist - Neck Neck exam: Present: normal inspection - Respiratory Respiratory exam: Present: normal lung sounds bilaterally. Absent: respiratory distress - Cardiovascular Cardiovascular Exam: Present: regular rate, normal rhythm. Absent: systolic murmur, diastolic murmur, rubs, gallop - GI/Abdominal GI/Abdominal exam: Present: soft, normal bowel sounds - Extremities Exam Extremities exam: Present: normal inspection - Back Exam Back exam: Present: normal inspection - Neurological Exam Neurological exam: Present: alert, oriented X3 - Psychiatric Psychiatric exam: Present: normal affect, normal mood - Skin Skin exam: Present: warm, dry, intact, normal color. Absent: rash ED Course Vital Signs 01/30/22 16:32 Temperature 98.8 F Pulse Rate 66 Respiratory 17 Rate Blood Pressure 149/71 [Left] O2 Sat by Pulse 99 Oximetry ED Medical Decision Making - Medical Decision Making 62-year-old female presents to the ED complaining hypertension. Patient states that she is currently being followed by her primary care doctor in which they are constantly changing her medication./States she is currently taking atenolol 100 mg twice a day and losartan potassium 25 mg daily she started 3 weeks ago. She states that she noticed that her blood pressure has been running high and her next appointment with her with her primary care doctor is within 4 days. Patient states that the medication often make her feel dizzy. Patient is alert and oriented x3. No acute distress noted .No ill appearance noted Critical care attestation.: If time is entered above; I have spent that time in minutes in the direct care of this critically ill patient, excluding procedure time. ED Disposition Clinical Impression: Hypertension Qualifiers: Hypertension type: primary hypertension Qualified Code(s): I10 - Essential (primary) hypertension Disposition: 01 HOME / SELF CARE / HOMELESS Is pt being admited?: No Does the pt Need Aspirin: No Condition: Stable Instructions: Hypertension (ED), Hypertension, Adult, [id number] Additional Instructions: continue to take medication as prescribed Return to the ED for any worsening symptom Referrals: SYLVIA ESPANA MD [Staff Physician] - 3-5 Days Forms: Work/School Release Form(ED) Time of Disposition: 08:05
[2022-01-31 08:38] VITALS: BP 141/87
== END 2022-01-31 08:38 | disposition home or self-care (01) ==
LOC: ED 15:53
DX: I10 Essential (primary) hypertension (principal); Z88.6 Allergy status to analgesic agent
CPT/HCPCS: 99282